=== PATIENT | female | born 1965 | race Caucasian/White ===

== ENCOUNTER 2017-02-06 12:10 | Emergency (ER) | payer OTHER ==
[2017-02-06 12:25] VITALS: BP 123/69
--- NOTE | 2017-02-06 14:32 | PROVIDER DOCUMENTATION ---
HPI-Respiratory General - General Chief Complaint: Sore Throat Stated Complaint: COUGH Time Seen by Provider: 02/06/17 13:10 Source: patient Allergies/Adverse Reactions: Patient Allergies Allergy/AdvReac Type Severity Reaction Status Date / Time rizatriptan benzoate * Allergy Unknown Verified 02/06/17 12:25 [From [facility]] Home Medications: Home Medication List Medication Instructions Recorded Confirmed Last Taken Type Azithromycin [Zithromax Z-Fabricio] 250 mg PO DIRECTED #1 pkg 02/06/17 Unknown Rx Guaifenesin [Robitussin] 10 ml PO Q4H PRN PRN #1 bottle 02/06/17 Unknown Rx Methylprednisolone [Medrol Dosepak] 4 mg PO DIRECTED #1 package 02/06/17 Unknown Rx - History of Present Illness-Resp Nature of Presenting Problem: 52 year old WF presents with c/o subjective fever, chills, intermittent for 7 days with cough, nonproductive. pt reports last night she developed sore throat. pt has a history of COPD and reports she has been using her inhaler more than normal since the cough started with increased wheezing and shortness of breath. Quality of Pain: reports: sharp, stabbing Severity in ED: reports: mild Onset/Duration: reports: 24 hours ago Timing: reports: still present, constant, getting worse Context: reports: recent URI Cough Quality/Degree: reports: moderate, dry cough. denies: productive cough, sputum, blood streaked sputum Episode Frequency: frequent episodes Current Respiratory Medication Therapy: Initiated steroid inhaler, Initiated albuterol, Initiated singulair Modifying Factors: improves with: nothing Associated Symptoms: reports: cough, fever/chills, flu-like symptoms, hurts to breathe, shortness of breath, short of breath, sore throat, wheezing Similar Symptoms Previously?: Yes Recently seen or treated by another doctor?: No Review of Systems - Adult - REVIEW OF SYSTEMS - ADULT Constitutional: reports: see HPI, chills, fever. denies: fatique Eyes: reports: no symptoms reported. denies: discharge, blurred vision, double vision Ears, Nose, Mouth & Throat: reports: no symptoms reported, throat pain, throat swelling. denies: ear discharge, ear pain, nose pain, loose teeth Cardiovascular: reports: no symptoms reported. denies: chest pain, palpitations , syncope Respiratory: reports: see HPI, cough, shortness of breath, wheezing. denies: chronic cough, dyspnea on exertion, excessive sputum production, hemoptysis, pleurisy Gastrointestinal: reports: no symptoms reported. denies: abdominal pain, diarrhea, nausea, vomiting Genitourinary: reports: no symptoms reported. denies: dysuria, hematuria, urgency Musculoskeletal: reports: no symptoms reported. denies: bone pain, joint pain, joint swelling, neck pain Integumentary: reports: no symptoms reported. denies: hives, itching, skin thickening Neurological: reports: no symptoms reported. denies: ataxia, dizziness/vertigo , headache/migraines Psychiatric: reports: no symptoms reported Endocrine: reports: no symptoms reported Hematologic/Lymphatic: reports: no symptoms reported Allergic/Immunologic: reports: no symptoms reported All Other Systems: Reviewed and Negative Past History - Adult - PAST MEDICAL HISTORY-ADULT Review of Records: reports: Old Records Reviewed, Nursing Assessment Review, Medications Reviewed, Social history reviewed & non-contributory. Major Childhood Illnesses: reports: denies history Cardiovascular: reports: HTN Respiratory: reports: COPD Gastrointestinal: reports: denies history Obstetrical/Gynecological: reports: denies history Genitourinary: reports: denies history Musculoskeletal: reports: chronic pain, fibromyalgia Neurological: reports: denies history Endocrine/Immune: reports: denies history Other Conditions: reports: denies history - FAMILY HISTORY Family History: reviewed, not pertinent - SOCIAL HISTORY Smoking: cigarettes Provider spent 3-5 mins advising pt. on dangers of tobacco.: Discussed manners to quit use, and f/u contacts for add'l counseling. Substance Use: none/never Alcohol Use Frequency: never Physical Exam-General - PHYSICAL EXAM-ADULT Initial Vital Signs Reviewed: Yes - CONSTITUTIONAL General Appearance: appears well, alert, no apparent distress. negative: mild distress, moderate distress, severe distress, lethargic, slow to respond, obtunded, combative - EYES Eyes: pink conjunctivae. negative: conjuctival exudate - HEAD, EARS, NOSE, MOUTH & THROAT HENMT: normocephalic/atraumatic, moist mucous membranes, normal ENT inspection, TMs normal, pharyngeal erythema. negative: pharynx normal, tonsillar exudate, TM abnormal, TM obscurred by cerumen, frontal tenderness, maxillary tenderness - NECK Neck: non-tender, full range of motion, supple, normal inspection, lymphadenopathy (anterior cervical). negative: C-spine tenderness, limited range of motion, tender lateral, tender midline - RESPIRATORY Respiratory: chest non-tender, lungs clear, normal breath sounds, no pleuratic chest pain, no respiratory distress, no accessory muscle use. negative: respiratory distress, decreased breath sounds, accessory muscle use, crackles, rales, rhonchi, stridor, wheezing - CARDIOVASCULAR Cardiovascular: normal peripheral pulses, regular rate, rhythm, no edema - CHEST (BREASTS) Chest/Breast: no tenderness - GASTROINTESTINAL (ABDOMEN) Abdominal Exam: normal bowel sounds, non tender, soft - GENITOURINARY Female Genitalia/Pelvic Exam: deferred Rectal Exam: deferred Hemoccult Exam: deferred - LYMPHATIC Lymphatic: cervical node tenderness - MUSCULOSKELETAL Back Exam: normal inspection, no CVA tenderness, no vertebral tenderness. negative: CVA tenderness, decreased range of motion, vertebral tenderness Extremity: normal range of motion, non-tender, normal gait, normal inspection, no pedal edema, no calf tenderness, normal capillary refill Peripheral Pulses: radial (R): 3+, radial (L): 3+, dorsalis-pedis (R): 3+, dorsalis-pedis (L): 3+ - SKIN Integumentary: normal color, normal turgor, warm/dry - NEUROLOGIC Neurologic: grossly normal, no motor/sensory deficits. negative: focal weakness , motor weakness, sensory deficit - PSYCHIATRIC Psych/Mental Status: normal mood/affect, normal thought content, normal thought process, oriented x 3 Progress - PLAN OF CARE/RESULTS Progress/Plan/Lab Results: Laboratory Tests 02/06/17 12:33 Group A Strep Rapid NEGATIVE Laboratory Tests 02/06/17 12:33 Group A Strep Rapid NEGATIVE Orders Category Date Time Status CHEST-2 VIEWS [RAD] Stat Exams 02/06/17 12:[address] Stat Lab 02/06/17 12:33 Completed Vital Signs - 24 hr 02/06/17 12:22 Temperature 99.2 F Pulse Rate 107 H Respiratory 20 Rate Blood Pressure 123/69 O2 Sat by Pulse 98 Oximetry - XRAY 1 XRAY Study: Chest Impression: Abnormal (no pna, emphysema. per ) Departure - Departure Time of Disposition Order: 14:30 DIAGNOSIS: Bronchitis Pharyngitis Qualifiers: Pharyngitis/tonsillitis etiology: other specified organisms Qualified Code(s): J02.8 - Acute pharyngitis due to other specified organisms Disposition: HOME 01 Certified Medical Emergency: Emergent Condition: Stable Additional Instructions: Follow up with your primary care doctor as needed. ED Follow Up Instructions: You have been treated by a care provider in the Emergency Department. These instructions are being provided to you so you can have an understanding of how to care for yourself upon discharge. Upon discharge from the Emergency Department, you are responsible for making arrangements for follow-up care by a physician of your choice. Take all prescribed medications as directed. Return to the Emergency Department immediately for any new or worsening symptoms. You may call the Physician Referral phone number at [phone] to obtain a list of Physicians who are taking new patients. Prescriptions: Methylprednisolone [Medrol Dosepak] 4 mg PO DIRECTED #1 package Guaifenesin [Robitussin] 10 ml PO Q4H PRN PRN #1 bottle PRN Reason: Cough Azithromycin [Zithromax Z-Fabricio] 250 mg PO DIRECTED #1 pkg Referrals: Elton Kelly [Primary Care Provider] - Yanelis Borja MD [STAFF PHYSICIAN] - Attestation - Physician/ HARLAN Attestation Patient care was provided by Advanced Practice Provider:: Yes Advanced Practice Provider:: Elli Machado Advanced Practice Provider documentation review:: The Mid-level provider documentation, treatment plan and medical decision making was reviewed by the physician who agrees with all treatment and medical decision making by the P.
--- NOTE | 2017-02-06 14:45 | Diag Imaging Result Document ---
PROCEDURE NAME: CHEST-2 VIEWS - 02/06/2017 FRONTAL AND LATERAL CHEST, 2 VIEWS COMPARISON: 09/28/16. FINDINGS: The lungs are well expanded. The heart is not enlarged. The pulmonary vessels are small. There are no infiltrates. No pleural effusions. Mild scoliosis. IMPRESSION: 1. No pneumonia. 2. Emphysema.
== END 2017-02-06 15:16 | disposition home or self-care (01) ==
LOC: P.ED 12:10
DX: J40 Bronchitis, not specified as acute or chronic (principal); J02.9 Acute pharyngitis, unspecified; R05 Cough; R50.9 Fever, unspecified; R06.2 Wheezing; R06.02 Shortness of breath; R07.1 Chest pain on breathing; R22.1 Localized swelling, mass and lump, neck; I10 Essential (primary) hypertension; J44.9 Chronic obstructive pulmonary disease, unspecified; G89.29 Other chronic pain; M79.7 Fibromyalgia; F17.210 Nicotine dependence, cigarettes, uncomplicated; Z71.6 Tobacco abuse counseling; R59.0 Localized enlarged lymph nodes
CPT/HCPCS: 71020; 87081; 87430; 99283